=== PATIENT | male | born 2000 | race Two or more races ===

== ENCOUNTER 2019-07-07 16:04 | Outpatient (CLI) | payer OTHER | END 2019-07-07 16:14 | disposition home or self-care (01) | LOC: RAD 16:04 | DX: M25.561 Pain in right knee (principal); M23.91 Unspecified internal derangement of right knee; B96.0 Mycoplasma pneumoniae [M. pneumoniae] as the cause of diseases classified elsewhere; Z76.89 Persons encountering health services in other specified circumstances ==

== ENCOUNTER → 2021-01-06 | Emergency (ER) | payer OTHER ==
[~2021-01-06] VITALS: Ht 172.7 cm; Wt 63.5 kg
== END | disposition home or self-care (01) ==
LOC: ER 18:00
DX: S51.812A Laceration without foreign body of left forearm, initial encounter (principal); Y93.18 Activity, surfing, windsurfing and boogie boarding; Y93.89 Activity, other specified; Y92.89 Other specified places as the place of occurrence of the external cause; Y99.8 Other external cause status

== ENCOUNTER 2021-01-15 08:41 | Emergency (ER) | payer OTHER ==
[~2021-01-15] VITALS: Ht 172.7 cm; Wt 63.5 kg
== END 2021-01-15 09:47 | disposition home or self-care (01) ==
LOC: ER 08:41
DX: Z48.02 Encounter for removal of sutures (principal)